=== PATIENT | male | born 1975 | race Caucasian/White ===

== ENCOUNTER → 2018-05-03 | Outpatient (CLI) | payer OTHER ==
[~2018-05-03] MED LIST: OMNIPAQUE 350 MG/ML, 100ML BOTTLE ONE
== END | disposition home or self-care (01) ==
LOC: RAD 15:28
PROVIDERS: ATTEND Physician Assistant
DX: R22.1 Localized swelling, mass and lump, neck (principal); R53.83 Other fatigue; B00.9 Herpesviral infection, unspecified; M54.6 Pain in thoracic spine; E55.9 Vitamin D deficiency, unspecified; M79.662 Pain in left lower leg; E78.5 Hyperlipidemia, unspecified; Z72.0 Tobacco use
CPT/HCPCS: 70491; Q9967